=== PATIENT | female | born 1975 | race Caucasian/White ===

== ENCOUNTER → 2022-07-22 | Outpatient (CLI) | payer MEDICARE ==
[2022-07-23 02:04] LABS: Basophils # (A) 0.01 X 10*3/uL (0.00-0.10); Basophils % (A) 0.2 %; Eosinophils # (A) 0.04 X 10*3/uL (0.04-0.35); Eosinophils % (A) 0.7 %; HCT 41.7 % (37.2-46.3); HGB 13.4 g/dL (12.0-15.0); Immature Grans, Automated 0.2 %; Lymphocytes # (A) 1.59 X 10*3/uL (0.90-5.00); Lymphocytes % (A) 28.2 %; MCH 32.1 pg (27.0-32.0); MCHC 32.1 g/dL (32.0-37.0); Mean Platelet Volume 12.5 fL (9.5-12.2); Monocytes # (A) 0.49 X 10*3/uL (0.20-1.00); Monocytes % (A) 8.7 %; NRBC Per 100 WBC 0 /100 WBCS (0.0-0.0); Neutrophils # (A) 3.49 X 10*3/uL (1.80-7.70); Platelet Count 207 X 10*3/uL (140-440); RBC 4.17 X 10*6/uL (4.10-5.20); RDW 12.9 % (11.5-14.5); WBC 5.63 X 10*3/uL (4.50-10.00)
[2022-07-23 02:11] LABS: Albumin 4.2 g/dL (3.8-4.9); Albumin/Globulin Ratio 1.73 (1.60-3.17); Anion Gap 11.5 mmol/L (10.00-18.00); BUN/Creat Ratio 16.44 Ratio (12.00-20.00); Blood Urea Nitrogen 13.5 mg/dL (9.0-27.0); Calcium 9.5 mg/dL (8.7-10.3); Carbon Dioxide 23.1 mmol/L (20.0-27.5); Globulin 2.4 g/dL (1.6-3.3); Non-African American GFR(CKD) 86.3 (60.0-200.0); Potassium 4.7 mmol/L (3.5-5.5); T4, Free (Free Thyroxine) 0.93 ng/dL (0.800-1.800); Total Bilirubin 0.5 mg/dL (0.30-1.20); Total Protein 6.6 g/dL (6.2-8.2)
== END | disposition home or self-care (01) ==
LOC: LABWHC1 14:33
PROVIDERS: ATTEND Family Medicine
DX: Z12.31 Encounter for screening mammogram for malignant neoplasm of breast (principal); G47.00 Insomnia, unspecified; L65.9 Nonscarring hair loss, unspecified; F32.1 Major depressive disorder, single episode, moderate; R53.83 Other fatigue
CPT/HCPCS: 36415; 80053; 84439; 84443; 85025

== ENCOUNTER → 2022-08-10 | Outpatient (CLI) | payer MEDICARE ==
[2022-08-10 20:54] LABS: Follicle Stimulating Hormone 36.1 mIU/mL
== END | disposition home or self-care (01) ==
LOC: LABWHC1 12:42
PROVIDERS: ATTEND Family Medicine
DX: L65.9 Nonscarring hair loss, unspecified (principal)
CPT/HCPCS: 36415; 83001; 83002

== ENCOUNTER → 2024-10-25 | Outpatient (CLI) | payer MEDICARE ==
[2024-10-25 19:21] LABS: Basophils # (A) 0.05 X 10*3/uL (0.00-0.10); Basophils % (A) 0.8 %; Eosinophils # (A) 0.09 X 10*3/uL (0.04-0.35); Eosinophils % (A) 1.4 %; HCT 42.4 % (37.2-46.3); HGB 13.6 g/dL (12.0-15.0); Lymphocytes # (A) 1.69 X 10*3/uL (0.90-5.00); MCH 30.7 pg (27.0-32.0); MCHC 32.1 g/dL (32.0-37.0); MCV 95.7 FL (80.0-97.0); Mean Platelet Volume 11.1 FL (9.5-12.2); NRBC Per 100 WBC 0 X 10*3/uL (0.00-0.01); Neutrophils # (A) 3.92 X 10*3/uL (1.80-7.70); Neutrophils % (A) 62.5 %; Platelet Count 259 X 10*3/uL (140-440); RBC 4.43 X 10*6/uL (4.10-5.20); RDW 12.8 % (11.5-14.5); WBC 6.27 X 10*3/uL (4.50-10.00)
[2024-10-25 19:36] LABS: Thyroid Peroxidase Antibodies 39.5 U/mL (0.0-33.0)
[2024-10-25 21:42] LABS: ALT 16 U/L (8-44); AST 21 U/L (13-35); Albumin 4.1 g/dL (3.8-4.9); Albumin/Globulin Ratio 1.41 Ratio (1.60-3.17); Alkaline Phosphatase 68 U/L (41-126); BUN/Creat Ratio 15.25 Ratio (12.00-20.00); Blood Urea Nitrogen 12.2 mg/dL (9.0-27.0); Carbon Dioxide 19.4 mmol/L (21.6-31.8); Chloride 108 mmol/L (96-109); Chol/HDL Ratio 3.25 Ratio; Globulin 2.9 g/dL (1.6-3.3); Glucose 86 mg/dL (70-110); LDL Cholesterol,Calculated 97.7 mg/dL (0.0-131.0); Sodium 143 mmol/L (135-145); T4, Free (Free Thyroxine) 0.93 ng/dL (0.80-1.80); Total Bilirubin 0.7 mg/dL (0.3-1.2)
== END | disposition home or self-care (01) ==
LOC: LABWHC1 12:02
PROVIDERS: ATTEND Family Medicine
DX: Z00.00 Encounter for general adult medical examination without abnormal findings (principal); E78.2 Mixed hyperlipidemia; R53.83 Other fatigue
CPT/HCPCS: 36415; 80053; 80061; 82306; 82607; 84439; 84443; 85025; 86376; 86800

== ENCOUNTER → 2025-01-25 | Outpatient (CLI) | payer MEDICARE | END | disposition home or self-care (01) | LOC: LABWHC1 15:29 | PROVIDERS: ATTEND Family Medicine | DX: E55.9 Vitamin D deficiency, unspecified (principal) | CPT/HCPCS: 36415; 82306 ==